=== PATIENT | female | born 1995 | race American Indian/Alaskan Native ===

== ENCOUNTER 2022-01-20 03:01 | Emergency (ER) | payer SELFPAY ==
--- NOTE | 2022-01-20 09:02 | XRay Report ---
Left shoulder 3 views INDICATION: Injury FINDINGS: Glenohumeral joint appears normal. The distal clavicle is slightly elevated relation to the chromium however this may represent normal variant. Correlation with patient's examination in region of pain. No clavicle fracture is seen. Signer Name: Harvey Campbell MD Signed: 01/20/2022 8:57 AM Workstation Name: [id number]
[2022-01-20 09:09] VITALS: BP 112/51
[2022-01-20] MEDS ORDERED: CYCLOBENZAPRINE 10 MG TAB PO ONE (09:25)
[2022-01-20] MEDS ORDERED: KETOROLAC 10 MG TAB PO ONE (09:25)
[2022-01-20] MEDS ORDERED: ACETAMINOPHEN W/CODEINE 300-30 MG TAB PO ONE (09:26)
--- NOTE | 2022-01-20 09:41 | Emergency Department Report ---
ED Fall HPI - General Chief Complaint: Shoulder Injury Stated Complaint: LF SHOULDER PAIN Time Seen by Provider: 01/20/22 08:55 Source: EMS Mode of arrival: Ambulatory - History of Present Illness Initial Comments: 26-year-old black female with a past medical history of asthma presents to the emergency department for evaluation of left arm pain. 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 She states that she did not have any loss of consciousness but she landed on her left shoulder. She states that it felt like her shoulder popped out of place then popped back into place, and she presents with left shoulder pain. MD Complaint: fall -: Sudden, hour(s) Fall From: other When Fall Occurred: 1-3 hours [employer] (Off a forklift) Fall Witnessed: yes, by bystander Loss of Consciousness: none Prolonged Down Time?: no Symptoms Prior to Fall: none Location - Extremities: Left: Shoulder Severity: severe Severity scale (0 -10): 10 Quality: aching Associated Symptoms: denies: headache, neck pain, numbness, weakness, shortness of breath, abdominal pain, hematuria, unable to walk - Related Data Home Medications Medication Instructions Recorded Confirmed Last Taken Ferrous Sulfate 60 mg PO QDAY 01/20/22 01/20/22 Unknown Previous Rx's Medication Instructions Recorded Last Taken Type Cyclobenzaprine [Flexeril] 10 mg PO TID PRN #30 tab 01/20/22 Unknown Rx Naproxen [Naprosyn] 500 mg PO BID 7 Days #14 tab 01/20/22 Unknown Rx Allergies Allergy/AdvReac Type Severity Reaction Status Date / Time No Known Allergies Allergy Unverified 01/20/22 03:29 ED Review of Systems ROS: Stated complaint: LF SHOULDER PAIN Other details as noted in HPI Comment: All other systems reviewed and negative Constitutional: denies: chills, fever, weakness Eyes: denies: eye pain, eye discharge ENT: denies: congestion Respiratory: denies: cough, orthopnea, shortness of breath Cardiovascular: denies: chest pain, palpitations Gastrointestinal: denies: abdominal pain, nausea, vomiting Musculoskeletal: denies: back pain Neurological: denies: headache, weakness ED Past Medical Hx - Social History Smoking Status: Unknown if ever smoked - Medications Home Medications: Home Medications Medication Instructions Recorded Confirmed Last Taken Type Cyclobenzaprine [Flexeril] 10 mg PO TID PRN #30 tab 01/20/22 Unknown Rx Ferrous Sulfate 60 mg PO QDAY 01/20/22 01/20/22 Unknown History Naproxen [Naprosyn] 500 mg PO BID 7 Days #14 tab 01/20/22 Unknown Rx ED Physical Exam - General Limitations: No Limitations General appearance: alert, in no apparent distress - Head Head exam: Present: atraumatic, normocephalic - Eye Eye exam: Present: normal appearance. Absent: conjunctival injection - Neck Neck exam: Present: normal inspection. Absent: tenderness (No midline vertebral tenderness noted), lymphadenopathy - Respiratory Respiratory exam: Absent: respiratory distress - Cardiovascular Cardiovascular Exam: Present: regular rate - Expanded Cardiovascular Exam Expanded 1 - Tenderness - GI/Abdominal GI/Abdominal exam: Absent: distended - Extremities Exam Extremities exam: Present: normal inspection - Expanded Upper Extremity Exam Left Shoulder Exam: Present: normal inspection, full ROM (Patient able to perform for range of motion but states that she does have some tenderness with motions.), tenderness. Absent: swelling, abrasion, laceration, ecchymosis, deformity, crepidus, dislocation, erythema, tenderness over AC joint Upper Arm exam: Present: normal inspection Elbow exam: Present: normal inspection Forearm Wrist exam: Present: normal inspection Hand Wrist exam: Present: normal inspection Vascular: Present: normal capillary refill, radial pulse. Absent: vascular compromise, Pallo, pulse deficit radial art - Back Exam Back exam: Present: normal inspection. Absent: tenderness - Neurological Exam Neurological exam: Present: alert, oriented X3 - Psychiatric Psychiatric exam: Present: normal affect, normal mood - Skin Skin exam: Present: warm, dry, intact, normal color ED Course Vital Signs 01/20/22 01/20/22 03:16 09:08 Temperature 98.2 F 97.9 F Pulse Rate 78 91 H Respiratory 18 16 Rate Blood Pressure 128/84 Blood Pressure 112/51 [Right] O2 Sat by Pulse 100 100 Oximetry ED Medical Decision Making - Radiology Data Radiology results: report reviewed, image reviewed Left shoulder x-ray: FINDINGS: Glenohumeral joint appears normal. The distal clavicle is slightly elevated relation to the chromium however this may represent normal variant. Correlation with patient's examination in region of pain. No clavicle fracture is seen. - Medical Decision Making 26-year-old black female with a past medical history of asthma presents to the emergency department for evaluation of left arm pain. 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 She states that she did not have any loss of consciousness but she landed on her left shoulder. She states that it felt like her shoulder popped out of place then popped back into place, and she presents with left shoulder pain. Physical exam unremarkable. Left shoulder x-ray without any acute abnormalities noted. Patient will be treated with anti-inflammatories, Tylenol 3, and muscle relaxants in the emergency department and discharged home with naproxen and Flexeril to use as needed for pain. She is advised to follow-up with orthopedics if no improvement or worsening symptoms. She is advised to return to the emergency department as needed. She verbalized understanding of and agreement with plan of care. Critical care attestation.: If time is entered above; I have spent that time in minutes in the direct care of this critically ill patient, excluding procedure time. ED Disposition Clinical Impression: Left shoulder pain Qualifiers: Chronicity: acute Qualified Code(s): M25.512 - Pain in left shoulder Fall Qualifiers: Encounter type: initial encounter Qualified Code(s): W19.XXXA - Unspecified fall, initial encounter Disposition: HOME / SELF CARE / HOMELESS Is pt being admited?: No Does the pt Need Aspirin: No Condition: Stable Instructions: Shoulder Pain, [id number], Musculoskeletal Pain, How to Use Cold Therapy, [id number] Additional Instructions: Take medications as prescribed. Follow-up with orthopedics if no improvement or worsening symptoms. Return to the emergency department as needed. Prescriptions: Cyclobenzaprine [Flexeril] 10 mg PO TID PRN #30 tab PRN Reason: Muscle Spasm Naproxen [Naprosyn] 500 mg PO BID 7 Days #14 tab Referrals: SUJIT SIMMONS MD [Staff Physician] - 3-5 Days Forms: Work/School Release Form(ED) Time of Disposition: 09:45
== END 2022-01-20 10:01 | disposition home or self-care (01) ==
LOC: ED 03:01
DX: M25.512 Pain in left shoulder (principal); Z79.899 Other long term (current) drug therapy; W18.39XA Other fall on same level, initial encounter; Y93.89 Activity, other specified; Y92.89 Other specified places as the place of occurrence of the external cause; Y99.8 Other external cause status
CPT/HCPCS: 99283